=== PATIENT | male | born 1975 | race Two or more races ===

== ENCOUNTER 2018-02-13 16:31 | Emergency (ER) | payer MEDICAID ==
[~2018-02-13] VITALS: Ht 170.2 cm; Wt 78.2 kg
[2018-02-13 16:45] VITALS: BP 147/82
[2018-02-13 18:38] LABS: MICROSCOPIC INDICATED
[2018-02-13 18:40] LABS: CULTURE INDICATED? NO
== END 2018-02-13 19:31 | disposition home or self-care (01) ==
LOC: ED 19:24
DX: S39.011A Strain of muscle, fascia and tendon of abdomen, initial encounter (principal); X58.XXXA Exposure to other specified factors, initial encounter; Y93.89 Activity, other specified; Y92.89 Other specified places as the place of occurrence of the external cause; Y99.8 Other external cause status
CPT/HCPCS: 76870; 81001; 99285

== ENCOUNTER 2019-04-24 14:23 | Emergency (ER) | payer MEDICAID ==
[~2019-04-24] VITALS: Ht 167.6 cm; Wt 78.9 kg
[2019-04-24 14:49] VITALS: BP 126/79
--- NOTE | 2019-04-24 16:17 | NUR ---
PT AMBULATORY TO ROOM 13.
--- NOTE | 2019-04-24 16:35 | NUR ---
AT BEDSIDE FOR EXAM.
--- NOTE | 2019-04-24 16:35 | NUR ---
PT HERE WITH C/O LEFT WRIST PAIN/SWELLIONG STARTING "A FEW DAYS AGO." PT DEINES TRAUMA. PT AAO X 4, NAD, ROOM AIR, CALL LIGHT WITHIN REACH. PT HAS FULL RANGE OF MOTION IN LEFT WRIST.
--- NOTE | 2019-04-24 16:43 | NUR ---
Patient/Caregiver given discharge instructions and they have confirmed that they understand the instructions. Patient ambulatory with steady gait.
== END 2019-04-24 16:44 | disposition home or self-care (01) ==
LOC: ED 16:30
DX: G89.11 Acute pain due to trauma (principal); M79.632 Pain in left forearm; X58.XXXA Exposure to other specified factors, initial encounter; Y93.89 Activity, other specified; Y92.89 Other specified places as the place of occurrence of the external cause; Y99.8 Other external cause status
CPT/HCPCS: 99283

== ENCOUNTER 2019-06-07 16:45 | Emergency (ER) | payer MEDICAID ==
[~2019-06-07] VITALS: Ht 170.2 cm; Wt 78.1 kg
[2019-06-07 17:36] VITALS: BP 140/90
== END 2019-06-07 19:05 | disposition home or self-care (01) ==
LOC: ED 18:55
DX: M25.562 Pain in left knee (principal)
CPT/HCPCS: 29505; 99283